=== PATIENT | female | born 1965 | race Caucasian/White ===

== ENCOUNTER 2018-07-09 06:16 | Inpatient (IN) | payer BC, OTHER ==
[2018-07-09] MEDS ORDERED: TRANEXAMIC ACID 1000 MG/10 ML VIAL IVPUSH ONE (06:37)
[2018-07-09] MEDS ORDERED: CEFAZOLIN 2 GM/D5W 2 GM/50 ML ML IVPB ONE (06:37)
[2018-07-09] MEDS ORDERED: GABAPENTIN 300 MG CAPSULE (FP) PO ONE (06:37)
[2018-07-09] MEDS ORDERED: CELECOXIB 200 MG CAPSULE PO ONE (06:37)
[2018-07-09] MEDS ORDERED: oxyCODONE HCL 10 MG SUSTAINED ACTING TABLET PO ONE (06:37)
[2018-07-09 06:44] VITALS: BMI 26.3
[2018-07-09] MEDS ORDERED: DEXAMETHASONE SOD PHOSPHATE/PF 10 MG/ML SDV ONE (07:42)
[2018-07-09] MEDS ORDERED: LIDOCAINE 1% P/F 10 MG/ML VIAL ONE (07:43)
[2018-07-09] MEDS ORDERED: MIDAZOLAM HCL 2 MG/2 ML SINGLE DOSE VIAL ONE (07:43)
[2018-07-09] MEDS ORDERED: ROPIVACAINE HCL 0.5% 30ML VIAL ONE (07:43)
[2018-07-09] MEDS ORDERED: PROPOFOL 20 ML ONE ×2 (07:46)
--- NOTE | 2018-07-09 07:59 | HP ---
Satellite PMH - Chief Complaint Chief Complaint: right hip pain - Past Medical History Allergies/Adverse Reactions: Allergies Allergy/AdvReac Type Severity Reaction Status Date / Time nitrofurantoin Allergy [id number] Verified 06/24/18 12:52 [From Macrodantin] DISEASE methylprednisolone AdvReac Severe AGGRESSION/ Verified 06/24/18 12:52 [From Medrol] AGITATION ...LMP Comment: OVER 30 YEARS AGO - Current Medications Current Medications: Home Medications Medication Instructions Recorded Estradiol/Norethindrone Acet 1 each TD ASDIR 06/24/18 [Combipatch 0.05-0.14 mg Ptch] Hydrocodone/Acetaminophen [Vicodin 1 each PO Q4HWA PRN 06/24/18 Es 7.5-300 mg Tablet] Cannabidiol (Cbd) Extract 100 mg PO ASDIR PRN 07/09/18 [Epidiolex] Ibuprofen [Advil -] 200 mg PO QID PRN 07/09/18 Multivitamins [Tab-A-Vit -] 1 tab PO DAILY 07/09/18 Satellite Physical Exam - Physical Examination Vital Signs: Vital Signs Period Temp Pulse Resp BP Sys/Andujar Pulse Ox Last 24 Hr 98.2 F 82 18 137/79 General Appearance: Well Nourished, Well Developed, Alert & Oriented x3 ENT: Clear Lung: Normal air movement Heart: Regular rate & rhythm Extremities: Other (right hip- + ttp, dec rom, nvi xrays show grade 4 hip djd) Neurological: Intact, Alert, Oriented Satellite Impression/Plan - Impression/Plan Impression: right hip djd Operative Procedure: right autumn thr Date to be Performed: 07/09/18
[2018-07-09] MEDS ORDERED: TRANEXAMIC ACID 1000 MG/10 ML VIAL ONE ×2 (08:00→09:25)
[2018-07-09] MEDS ORDERED: ceFAZolin SODIUM 1 GM VIAL ONE ×2 (08:00)
[2018-07-09] MEDS ORDERED: ePHEDrine SULFATE 50 MG/1 ML AMPULE ONE (09:16)
[2018-07-09] MEDS ORDERED: ONDANSETRON 4 MG/2 ML VIAL IVPUSH PRN (09:45)
[2018-07-09] MEDS ORDERED: MAGNESIUM HYDROX 2400MG/30ML ORAL SUSPENSION 30 ML CUP PO PRN (09:45)
[2018-07-09] MEDS ORDERED: MAG HYDROX/AL HYDROX/SIMETH 30 ML UNIT-DOSE CUP PO PRN (09:45)
[2018-07-09] MEDS ORDERED: LACTATED RINGERS SOLUTION 1,000 ML IV SCH (09:45)
--- NOTE | 2018-07-09 09:47 | OP ---
Operative Note - Note: Operative Date: 07/09/18 (alexa) Pre-Operative Diagnosis: right hip djd Operation: right autumn thr Post-Operative Diagnosis: Same as Pre-op Surgeon: Angel Sparks Audio/Video Engineer: Francis Gann ([facility]) Anesthesia: Spinal, Local Specimens Removed: femoral head Estimated Blood Loss (mls): 150 Operative Report Dictated: Yes
[2018-07-09] MEDS ORDERED: MULTIVITAMINS (DAILY MVI) TABLET (FP) PO SCH (10:00)
[2018-07-09] MEDS ORDERED: oxyCODONE HCL 5 MG TABLET PO PRN (10:47)
[2018-07-09] MEDS: MULTIVITAMINS (DAILY MVI) TABLET (FP) PO SCH (11:52)
[2018-07-09] MEDS: oxyCODONE HCL 5 MG TABLET PO PRN ×3 (11:52→21:04)
[2018-07-09] MEDS: PANTOPRAZOLE 40 MG TABLET (FP) PO SCH (11:53)
[2018-07-09] MEDS: SENNOSIDES/DOCUSATE COMBO (SENNA PLUS) TABLET (UD) PO SCH ×2 (11:53→21:05)
[2018-07-09] MEDS: ACETAMINOPHEN 325 MG TABLET (FP) PO SCH ×2 (11:54→18:50)
--- NOTE | 2018-07-09 15:57 | SPEC ---
DATE OF OPERATION: 07/09/2018 PREOPERATIVE DIAGNOSIS: Degenerative joint disease, right hip. POSTOPERATIVE DIAGNOSIS: Degenerative joint disease, right hip. PROCEDURE PERFORMED: Right total hip replacement with robotic-assisted navigation (MAKOplasty). SURGICAL ATTENDING: Cassandra Robledo MD [employer] INSTALLER: JAYCE Walker, and Tuan Bell MD ANESTHESIA: Regional and spinal. CLOSURE: A Adamant total hip system with a number-4 Accolade II femoral stem with a 132-degree neck, a MDM head with +3 neck, and a 48-Trident II press-fit acetabulum. Number 1 Vicryl for fascia, 0 and 2-0 subcutaneous, 3-0 V-Loc for skin, 4-0 undyed Vicryl for pin sites. ESTIMATED BLOOD LOSS: Less than 100 mL. COMPLICATIONS: None. CONDITION: To the recovery room in stable condition. DESCRIPTION OF PROCEDURE: The patient was taken to the operating room on July 09, 2018. General and regional anesthesia was administered by the anesthesiologist. IV Kefzol and TXA were administered prophylactically prior to the case. The patient was placed in the lateral decubitus position with all prominences well-padded. The right hip area was prepped and draped in the usual sterile fashion. Using 3 small stab incisions over the iliac crest, 3 threaded pins were drilled in power fashion through the 2 tables of the crest. These pins were fastened and the navigation array for the Jono navigation system. Next, a 12 to 15-cm curved longitudinal incision over the posterolateral aspect of the greater trochanter was incised. Hemostasis was achieved with Bovie cautery. Sharp dissection was carried down to level of the fascia. The fascia was opened the entire length of the incision, spreading the fibers of the gluteus sweetie in the direction of origin. A Charnley retractor was placed in this layer. Care was taken not to impale the sciatic nerve. The short external rotators were detached off the insertion of the greater trochanter and peeled off the capsule. A posterior capsulotomy was then performed. A check point was malleted into the greater trochanter and a point on the inferior pole of the patella was obtained as well. These 2 points were used to assess the preoperative offset and limb lengths of the hip. The hip was then dislocated. The femoral neck was then osteotomized down to the appropriate level as directed by the navigation device. Anterior and posterior retractors were placed, exposing the acetabulum. A circumferential labral excision was performed. A check point was malleted into the acetabulum as well. Multiple sites inside the acetabulum and around the rim were utilized to register the acetabulum with the navigation device. An excellent registration of less than 0.5 mm was obtained. The hip was then reamed with the appropriate reamer down to the appropriate depth, with the appropriate orientation and version as assessed on our preoperative plan for this patient. The reamer was removed and the acetabulum was inspected to have good bleeding surfaces throughout. The real acetabular cup was then malleted down into place, with the holes in the appropriate position, until an excellent fixation was obtained. No screws were necessary. The navigation device ensured appropriate orientation and version, with the depth as predetermined. The appropriate liner was then clipped into place. Attention was directed to the femur. The proximal femur was prepared by use of a box chisel, a canal finder and serial broaches until the broach achieved excellent rigidity in the proximal femur with the appropriate version being applied. A calcar planer was used to smooth off the calcar flush with the trial components. A trial reduction with the appropriate head was done, and the hip was reduced. The hip was taken through a range of motion from full extension with external rotation to marked flexion, and was stable at 90 degrees of flexion. It was stable to marked abduction and internal rotation, with a positive hang test and negative telescoping. Limb lengths were ascertained visually as well as with the navigation device to be within the targeted range for this patient. The trial component was removed. The real component was then malleted into place. The head was cold welded to the trunnion, and the hip was reduced. Range of motion, stability and limb lengths were as described in the trial component. Then the hip was pulse antibiotic irrigated. Vancomycin powder was placed in the hip joint. The capsule was closed. The fascia was then closed as well using number-1 Vicryl interrupted suture, 0 and 2-0 subcutaneous, and 3-0 V-Loc for the skin, 4-0 undyed Vicryl was used to close the pin sites after the pins were removed. All check points were also removed. Sterile Aquacel dressing was applied. The patient was awakened from anesthesia and transferred into the supine position. Bilateral SCDs and an abduction pillow were placed. X-rays revealed excellent position of the components. The patient was transferred to the recovery room in stable condition, with no complications. Estimated blood loss was less than 100 mL. Tuan Bell M.D., dictating for Cassandra Robledo MD. CASSANDRA ROBLEDO M.D. SHORTY/[id number]
[2018-07-09] MEDS: CEFAZOLIN 2 GM/D5W 2 GM/50 ML ML IVPB SCH (16:03)
[2018-07-09] MEDS: GABAPENTIN 300 MG CAPSULE (FP) PO SCH (21:04)
[2018-07-09] MEDS: oxyCODONE HCL 10 MG SUSTAINED ACTING TABLET PO SCH (21:04)
[2018-07-10] MEDS: CEFAZOLIN 2 GM/D5W 2 GM/50 ML ML IVPB SCH (00:55)
[2018-07-10] MEDS: oxyCODONE HCL 5 MG TABLET PO PRN ×3 (05:54→19:12)
[2018-07-10 07:54] LABS: HEMATOCRIT 34.1 % (32.4-45.2); HEMOGLOBIN 11.3 GM/dl (10.7-15.3); MCH 30.8 pg (25.7-33.7); MEAN CELL VOLUME 93.5 fl (80-96); PLATELET COUNT 283 K/MM3 (134-434); RBC 3.65 M/mm3 (3.60-5.2); RDW 13.7 % (11.6-15.6); WHITE BLOOD COUNT 10.5 K/mm3 (4.0-10.8)
--- NOTE | 2018-07-10 08:10 | PN ---
Progress Note (short form) - Note Progress Note: Ortho Pt seen and examined s/p right autumn thr pod #1 Laboratory Tests 07/10/18 07:42 WBC 10.5 Hgb 11.3 Hct 34.1 Plt Count 283 dressing c/d/i, calf soft, nt nvi a/p PT hip precautions dvt ppx pain control d/c home today/tomorrow
[2018-07-10] MEDS: ACETAMINOPHEN 325 MG TABLET (FP) PO SCH ×4 (09:03→19:12)
[2018-07-10] MEDS: PANTOPRAZOLE 40 MG TABLET (FP) PO SCH (09:04)
[2018-07-10] MEDS: ASPIRIN 325 MG TABLET PO SCH (09:04)
[2018-07-10] MEDS: GABAPENTIN 300 MG CAPSULE (FP) PO SCH ×2 (09:04→21:07)
[2018-07-10] MEDS: SENNOSIDES/DOCUSATE COMBO (SENNA PLUS) TABLET (UD) PO SCH ×2 (09:05→21:07)
[2018-07-10] MEDS: MULTIVITAMINS (DAILY MVI) TABLET (FP) PO SCH (09:05)
[2018-07-10] MEDS: oxyCODONE HCL 10 MG SUSTAINED ACTING TABLET PO SCH ×2 (09:05→21:08)
--- NOTE | 2018-07-10 13:21 | PN ---
Progress Note (short form) - Note Progress Note: 53F POD1 s/p R THR under spinal anesthetic under spinal anesthetic with peripheral nerve blocks for post operative pain relief. Pt states that pain is well controlled and reports no anesthetic complications. AVSS. Motor and sensory function intact in bilateral lower extremities. Continue current regimen.
[2018-07-11] MEDS: ACETAMINOPHEN 325 MG TABLET (FP) PO SCH ×2 (00:50→03:35)
[2018-07-11 06:04] VITALS: BP 141/58; PULSE 77; TEMP 98.7
[2018-07-11] MEDS: ASPIRIN 325 MG TABLET PO SCH (08:10)
[2018-07-11 08:43] LABS: HEMATOCRIT 33.6 % (32.4-45.2); HEMOGLOBIN 10.8 GM/dl (10.7-15.3); MCH 30.1 pg (25.7-33.7); MEAN PLT VOLUME 8.6 fl (7.5-11.1); PLATELET COUNT 276 K/MM3 (134-434); RBC 3.57 M/mm3 (3.60-5.2); RDW 13.7 % (11.6-15.6); WHITE BLOOD COUNT 10.1 K/mm3 (4.0-10.8)
[2018-07-11] MEDS: oxyCODONE HCL 10 MG SUSTAINED ACTING TABLET PO SCH (10:06)
[2018-07-11] MEDS: GABAPENTIN 300 MG CAPSULE (FP) PO SCH (10:06)
--- NOTE | 2018-07-11 10:15 | PN ---
Progress Note (short form) - Note Progress Note: Ortho Pt seen and examined s/p right autumn thr pod #2 Selected Entries 07/11/18 06:02 Temperature 98.7 F Pulse Rate 77 Respiratory 17 Rate Blood Pressure 141/58 L Laboratory Tests 07/11/18 08:10 WBC 10.1 Hgb 10.8 Hct 33.6 Plt Count 276 dressing c/d/i, calf soft, nt nvi a/p PT hip precautions dvt ppx pain control d/c home today f/u in 1 week
--- NOTE | 2018-07-11 10:15 | DS ---
Physical Examination Vital Signs: Vital Signs Temperature 98.7 F 07/11/18 06:02 Pulse Rate 77 07/11/18 06:02 Respiratory Rate 17 07/11/18 08:01 Blood Pressure 141/58 L 07/11/18 06:02 O2 Sat by Pulse Oximetry (%) 98 07/11/18 08:01 Labs: CBC, BMP 07/11/18 08:10 Discharge Summary Reason For Visit: OSTEOARTHRITIS Procedures: Principal: right thr Hospital Course: admitted for elective right autumn thr, uneventful post-op, stable for d/c Condition: Good - Instructions Diet, Activity, Other Instructions: Post-op Instructions-Total Hip Replacement Call the office for a follow-up appointment in 1 week - [phone] Aspirin 325mg daily for 6 weeks. Pain medication was sent into your pharmacy. Apply Graduated Compression Stockings (TEDs) to both lower extremities- remove daily for hygiene ONLY Apply Sequential Compression Device (SCDs) to both Lower extremities remove for PT and hygiene ONLY Apply cold packs to affected area for 15 minutes every 2 hours. Physical Therapist will come to your home for the first 5 days. You will be set up with outpatient PT at your first post-operative visit. Patient may ambulate as tolerated-encourage self care (at least every 2-3 hours while awake) with walker or cane Maintain Aquacel (waterproof) dressing to operative wound (will be removed by surgeon at first office visit) Shower with Aquacel dressing in place-if Aquacel integrity compromised, remove and apply dry sterile dressing and notify Orthopedist. DO NOT SHOWER unless Orthopedists approves without Aquacel dressing CONTACT THE OFFICE FOR ANY CHANGE IN YOUR CONDITION (for example-fever greater than 102 degrees, excessive bleeding from operative site, purulent drainage, severe swelling or pain) GO TO THE EMERGENCY ROOM IF THERE IS A MEDICAL EMERGENCY Hip Precautions: * Keep a rolled towel under affected heel while in bed or chair (to keep knee in extension) * Dependent upon approach: * Posterior - do not cross legs; do not sit on low chairs or toilets. * If you have any questions, please do not hesitate to call the office - . Referrals: Tuan Bell MD [Family Provider] - Disposition: VNS/HOME HEALTH CARE - Home Medications Comprehensive Discharge Medication List: Ambulatory Orders Estradiol/Norethindrone Acet [Combipatch 0.05-0.14 mg Ptch] 1 each TD ASDIR Aspirin [ASA -] 325 mg PO DAILY@0800 tablet 07/09/18 Cannabidiol (Cbd) Extract [Epidiolex] 100 mg PO ASDIR PRN 07/09/18 Hydrocodone/Acetaminophen [Vicodin Es 7.5-300 mg Tablet] 1 each PO Q4HWA #40 tablet MDD 6 07/09/18 Ibuprofen [Advil -] 200 mg PO QID PRN 07/09/18 Multivitamins [Multivit ([facility] Formulary)] 1 tab PO DAILY 07/09/18
--- NOTE | 2018-07-15 11:17 | PATH ---
Surgical Pathology Report Patient Name: DAVID OTTO Med. Rec. #: [id number] /Age/Gender: 1965 (Age: 53) / F Account: [id number] Location: [facility] Taken: 07/09/2018 Received: 07/09/2018 Reported: 07/15/2018 Physicians: Angel Sparks M.D. Specimen(s) Received RIGHT FEMORAL HEAD Clinical History Right hip osteoarthritis Final Diagnosis FEMORAL HEAD, RIGHT, TOTAL HIP REPLACEMENT: DEGENERATIVE JOINT DISEASE. Electronically Signed Maritza Black M.D. Gross Description Received in formalin, labeled "right femoral head," is a 4.5 x 4.5 x 3.6 cm. femoral head with a 1 cm in length portion of femoral neck attached. The margin of resection is smooth. No areas of eburnation are identified. The articular surface is jean baptiste-yellow and focally granular. The underlying trabecular bone is yellow and hard. A accounting representative section is submitted in one cassette, following decalcification. 07/10/2018 [facility]07/10/2018
== END 2018-07-11 11:03 | disposition home health service (06) | DRG 470 ==
LOC: FM/S 06:16
PROVIDERS: ADMIT Orthopaedic Surgery; ATTEND Orthopaedic Surgery
PROC: 8E0Y0CZ Robotic Assisted Procedure of Lower Extremity, Open Approach (ICD-10-PCS; 2018-07-09)
PROC: 0SR90JZ Replacement of Right Hip Joint with Synthetic Substitute, Open Approach (ICD-10-PCS; principal; 2018-07-09 08:42)
DX: M16.11 Unilateral primary osteoarthritis, right hip (principal)
CPT/HCPCS: 36415; 73502-TC-RT; 85027; 88304-TC; 88311-TC; 94760; 97116-GP; 97162-GP

== ENCOUNTER 2021-05-26 20:19 | Inpatient (IN) | payer BC ==
[2021-05-26 13:43] VITALS: BMI 29.1
[2021-05-31] MEDS ORDERED: LIDOCAINE 1%/EPI 1:100000 (20 ML MULTI DOSE VIAL) ONE (07:16)
[2021-05-31] MEDS ORDERED: BUPIVACAINE LIPOSOME/PF (EXPAREL) 266 MG/20 ML VIAL ONE (07:16)
[2021-05-31] MEDS ORDERED: PROPOFOL 20 ML ONE (08:06)
[2021-05-31] MEDS ORDERED: MIDAZOLAM HCL 2 MG/2 ML SINGLE DOSE VIAL ONE (08:06)
[2021-05-31] MEDS ORDERED: ROCURONIUM BROMIDE 50 MG/5 ML SYRINGE ONE (08:06)
[2021-05-31] MEDS ORDERED: SUCCINYLCHOLINE CHLORIDE 200 MG/10 ML SYRINGE ONE (08:06)
[2021-05-31] MEDS ORDERED: ceFAZolin SODIUM 1 GM VIAL ONE ×2 (08:42→17:14)
[2021-05-31] MEDS ORDERED: ceFAZolin SODIUM 1 GM VIAL IVPB ONE (08:46)
[2021-05-31] MEDS ORDERED: VANCOMYCIN 1,000 MG VIAL (RESTRICTED TO ID ONLY) ONE (08:51)
[2021-05-31] MEDS ORDERED: ePHEDrine SULFATE 50 MG/1 ML AMPULE ONE (08:57)
[2021-05-31] MEDS ORDERED: DEXAMETHASONE SOD PHOSPHATE 4 MG/1 ML VIAL ONE (08:59)
[2021-05-31] MEDS ORDERED: VANCOMYCIN 1 GM in D5W (PRE-DOCKED) 1,000 MG/250 ML IVPB ONE (09:00)
[2021-05-31] MEDS ORDERED: TRANEXAMIC ACID 1000 MG/10 ML VIAL ONE (09:02)
[2021-05-31] MEDS ORDERED: LIDOCAINE 1%/EPI 1:100000 (20 ML MULTI DOSE VIAL) IJ ONE (09:11)
[2021-05-31] MEDS ORDERED: GENTAMICIN SO4 80 MG/2 ML VIAL IVPB ONE (09:15)
[2021-05-31] MEDS ORDERED: HYDROmorphone HCl 2 MG/ML VIAL ONE (09:16)
[2021-05-31] MEDS ORDERED: THROMBIN (BOVINE) 5,000 UNIT VIAL TP ONE (09:30)
[2021-05-31] MEDS ORDERED: NEOSTIGMINE METHYLSULFATE 0.5 MG/1 ML - 10 ML MDV ONE (10:03)
[2021-05-31] MEDS ORDERED: ONDANSETRON 4 MG/2 ML VIAL ONE (10:06)
[2021-05-31] MEDS ORDERED: ONDANSETRON 4 MG/2 ML VIAL IVPUSH PRN ×2 (10:33→11:31)
[2021-05-31] MEDS ORDERED: LACTATED RINGERS SOLUTION 1,000 ML IV SCH (10:45)
[2021-05-31] MEDS ORDERED: diphenhydrAMINE HCL 25 MG CAPSULE (FP) PO PRN (11:31)
[2021-05-31] MEDS ORDERED: oxyCODONE HCL 5 MG TABLET PO PRN (11:31)
[2021-05-31] MEDS ORDERED: LACTATED RINGERS SOLUTION 1,000 ML/1,000 ML INFUS.BAG IV SCH (11:45)
[2021-05-31] MEDS: HEPARIN NA (PORCINE) 5,000 UNITS/ML 1ML VIAL SQ SCH ×2 (16:03→21:16)
[2021-05-31] MEDS: DOCUSATE SODIUM 100 MG CAPSULE (FP) PO SCH ×2 (16:12→21:16)
[2021-05-31] MEDS ORDERED: DEXTROSE 5%-WATER - 50 ML IVPB ONE (17:15)
[2021-05-31] MEDS: morphine SULFATE 4 MG/ML VIAL IVPUSH PRN ×2 (17:22→22:39)
[2021-05-31] MEDS: CEFAZOLIN 1 GM in DEXTROSE 5%-WATER - 1 GM/50 ML IVPB IVPB SCH (17:22)
[2021-06-01] MEDS ORDERED: ceFAZolin SODIUM 1 GM VIAL ONE ×3 (02:01→17:27)
[2021-06-01] MEDS ORDERED: DEXTROSE 5%-WATER - 50 ML IVPB ONE ×3 (02:01→17:27)
[2021-06-01] MEDS: CEFAZOLIN 1 GM in DEXTROSE 5%-WATER - 1 GM/50 ML IVPB IVPB SCH ×3 (02:14→17:32)
[2021-06-01] MEDS: morphine SULFATE 4 MG/ML VIAL IVPUSH PRN (02:16)
[2021-06-01] MEDS: HEPARIN NA (PORCINE) 5,000 UNITS/ML 1ML VIAL SQ SCH ×3 (05:34→22:17)
[2021-06-01] MEDS: DOCUSATE SODIUM 100 MG CAPSULE (FP) PO SCH ×3 (05:34→22:17)
[2021-06-01] MEDS: oxyCODONE HCL 5 MG TABLET PO PRN ×4 (09:00→22:22)
[2021-06-01 09:05] LABS: HEMATOCRIT 34.3 % (32.4-45.2); HEMOGLOBIN 11.7 GM/dL (10.7-15.3); MCH 31.1 pg (25.7-33.7); MEAN CELL VOLUME 91.4 fl (80-96); MEAN PLT VOLUME 8.4 fl (7.5-11.1); PLATELET COUNT 313 10^3/uL (134-434); RBC 3.76 M/mm3 (3.60-5.2); RDW 14.4 % (11.6-15.6); WHITE BLOOD COUNT 12.2 K/mm3 (4.0-10.0)
[2021-06-01 09:35] LABS: CALCIUM 8.6 mg/dL (8.5-10.1)
[2021-06-01 09:36] LABS: BLOOD UREA NITROGEN 8.1 mg/dL (7-18)
[2021-06-01 09:39] LABS: CREATININE 0.5 mg/dL (0.55-1.3)
[2021-06-01] MEDS: FOLIC ACID 1 MG TABLET (FP) PO SCH (10:59)
[2021-06-01] MEDS: FERROUS SO4 325 MG TABLET (FP) PO SCH (10:59)
[2021-06-02] MEDS ORDERED: ceFAZolin SODIUM 1 GM VIAL ONE (02:09)
[2021-06-02] MEDS ORDERED: DEXTROSE 5%-WATER - 50 ML IVPB ONE (02:10)
[2021-06-02] MEDS: morphine SULFATE 4 MG/ML VIAL IVPUSH PRN (02:27)
[2021-06-02] MEDS: CEFAZOLIN 1 GM in DEXTROSE 5%-WATER - 1 GM/50 ML IVPB IVPB SCH (02:30)
[2021-06-02] MEDS: oxyCODONE HCL 5 MG TABLET PO PRN ×3 (06:44→14:56)
[2021-06-02] MEDS: DOCUSATE SODIUM 100 MG CAPSULE (FP) PO SCH ×2 (06:47→14:56)
[2021-06-02] MEDS: HEPARIN NA (PORCINE) 5,000 UNITS/ML 1ML VIAL SQ SCH ×2 (06:48→14:56)
[2021-06-02 09:00] LABS: BASO % 0.2 % (0-2.0); EOS % 0.4 % (0-4.5); HEMOGLOBIN 11.7 GM/dL (10.7-15.3); LYMPH % 30.4 % (8-40); MCH 31.5 pg (25.7-33.7); MCHC 34.6 g/dl (32.0-36.0); MEAN CELL VOLUME 91.1 fl (80-96); MEAN PLT VOLUME 8.5 fl (7.5-11.1); MONO % 6.3 % (3.8-10.2); NEUT % 62.7 % (42.8-82.8); PLATELET COUNT 296 10^3/uL (134-434); RBC 3.73 M/mm3 (3.60-5.2); RDW 14.4 % (11.6-15.6); WHITE BLOOD COUNT 9.5 K/mm3 (4.0-10.0)
[2021-06-02 09:27] LABS: BLOOD UREA NITROGEN 6.7 mg/dL (7-18); CALCIUM 8.4 mg/dL (8.5-10.1)
[2021-06-02 09:28] LABS: ALBUMIN 3.1 g/dl (3.4-5.0); MAGNESIUM 1.6 mg/dL (1.8-2.4)
[2021-06-02 09:31] LABS: CREATININE 0.5 mg/dL (0.55-1.3); PHOSPHOROUS 2.6 mg/dL (2.5-4.9)
[2021-06-02 09:32] LABS: BILIRUBIN,TOTAL 0.5 mg/dL (0.2-1)
[2021-06-02 11:12] VITALS: TEMP 97.7
[2021-06-02] MEDS: FOLIC ACID 1 MG TABLET (FP) PO SCH (11:15)
[2021-06-02] MEDS: FERROUS SO4 325 MG TABLET (FP) PO SCH (11:15)
[2021-06-02 15:10] VITALS: BP 134/73; PULSE 75
== END 2021-06-02 16:13 | disposition home or self-care (01) | DRG 473 ==
LOC: EDSTATUS 05-30 09:50 → J2C 05-31 04:12 → J8W 05-31 14:42
PROVIDERS: ADMIT Neurological Surgery; ATTEND Internal Medicine
PROC: 0RT30ZZ Resection of Cervical Vertebral Disc, Open Approach (ICD-10-PCS; 2021-05-31)
PROC: 00NW0ZZ Release Cervical Spinal Cord, Open Approach (ICD-10-PCS; 2021-05-31)
PROC: 4A11X4G Monitoring of Peripheral Nervous Electrical Activity, Intraoperative, External Approach (ICD-10-PCS; 2021-05-31)
PROC: 0RG20A0 Fusion of 2 or more Cervical Vertebral Joints with Interbody Fusion Device, Anterior Approach, Anterior Column, Open Approach (ICD-10-PCS; principal; 2021-05-31 08:00)
DX: M47.12 Other spondylosis with myelopathy, cervical region (principal); G60.0 Hereditary motor and sensory neuropathy; G47.33 Obstructive sleep apnea (adult) (pediatric); Z96.641 Presence of right artificial hip joint; E66.3 Overweight; Z68.29 Body mass index [BMI] 29.0-29.9, adult; D72.829 Elevated white blood cell count, unspecified
CPT/HCPCS: 36415; 72125-TC; 76000-TC-FY; 80048; 80053; 81025; 83735; 84100; 85025; 85027; 86850; 86900; 86901; 94010; 94660; 94760; 97116-GP; 97161-GP; J1644

== ENCOUNTER 2021-06-14 08:00 | Inpatient (IN) | payer BC ==
[2021-06-10 11:37] VITALS: BMI 28.0
[2021-06-14] MEDS ORDERED: ONDANSETRON 4 MG/2 ML VIAL IVPUSH PRN (10:16)
[2021-06-14] MEDS ORDERED: LACTATED RINGERS SOLUTION 1,000 ML IV SCH (10:30)
[2021-06-14] MEDS ORDERED: LIDOCAINE 1%/EPI 1:100000 (20 ML MULTI DOSE VIAL) ONE (11:32)
[2021-06-14] MEDS ORDERED: GENTAMICIN SO4 80 MG/2 ML VIAL ONE (11:32)
[2021-06-14] MEDS ORDERED: BUPIVACAINE LIPOSOME/PF (EXPAREL) 266 MG/20 ML VIAL ONE (11:33)
[2021-06-14] MEDS ORDERED: BUPIVACAINE HCL/PF 0.5% (5MG/ML) 10 ML VIAL ONE (11:33)
[2021-06-14] MEDS ORDERED: MIDAZOLAM HCL 2 MG/2 ML SINGLE DOSE VIAL ONE ×3 (14:19→15:08)
[2021-06-14] MEDS ORDERED: LIDOCAINE 1%/EPI 1:100000 (20 ML MULTI DOSE VIAL) IJ ONE ×2 (14:21→15:35)
[2021-06-14] MEDS ORDERED: fentaNYL CITRATE 250 MCG/5 ML VIAL ONE (14:22)
[2021-06-14] MEDS ORDERED: ceFAZolin 2 GRAM PREMIX BAG IVPB ONE ×2 (14:22→15:15)
[2021-06-14] MEDS ORDERED: VANCOMYCIN 1 GM in D5W (PRE-DOCKED) 1,000 MG/250 ML IVPB ONE ×3 (14:22→16:01)
[2021-06-14] MEDS ORDERED: PROPOFOL 20 ML ONE (14:23)
[2021-06-14] MEDS ORDERED: HYDROGEN PEROXIDE 473 ML PO ONE ×2 (14:23→15:53)
[2021-06-14] MEDS ORDERED: THROMBIN (BOVINE) 5,000 UNIT VIAL TP ONE ×2 (14:23→15:52)
[2021-06-14] MEDS ORDERED: GENTAMICIN SO4 80 MG/2 ML VIAL IVPB ONE ×2 (14:24→15:53)
[2021-06-14] MEDS ORDERED: BUPIVACAINE LIPOSOME/PF (EXPAREL) 266 MG/20 ML VIAL NR ONE (14:25)
[2021-06-14] MEDS ORDERED: BUPIVACAINE HCL/PF 0.5% (5MG/ML) 10 ML VIAL IJ ONE (14:25)
[2021-06-14] MEDS ORDERED: MORPHINE 5 MG/10 ML AMP - FOR COMPOUNDING USE ONLY ONE (14:26)
[2021-06-14] MEDS ORDERED: DESFLURANE GAS 240 ML BOTTLE IH ONE (17:06)
[2021-06-14] MEDS ORDERED: NEOSTIGMINE METHYLSULFATE 0.5 MG/1 ML - 10 ML MDV ONE (17:07)
[2021-06-14] MEDS ORDERED: TRANEXAMIC ACID 1000 MG/10 ML VIAL ONE ×2 (18:23→18:24)
[2021-06-14] MEDS ORDERED: ACETAMINOPHEN INJECTION 100 ML IVPB ONE (18:26)
[2021-06-14] MEDS ORDERED: oxyCODONE HCL 5 MG TABLET PO PRN ×2 (20:04)
[2021-06-14] MEDS ORDERED: diphenhydrAMINE HCL 25 MG CAPSULE (FP) PO PRN (20:04)
[2021-06-14] MEDS: LACTATED RINGERS SOLUTION 1,000 ML/1,000 ML INFUS.BAG IV SCH (23:49)
[2021-06-14] MEDS: DOCUSATE SODIUM 100 MG CAPSULE (FP) PO SCH (23:50)
[2021-06-15] MEDS: HEPARIN NA (PORCINE) 5,000 UNITS/ML 1ML VIAL SQ SCH ×4 (00:03→21:39)
[2021-06-15] MEDS ORDERED: ceFAZolin SODIUM 1 GM VIAL ONE ×3 (02:07→15:44)
[2021-06-15] MEDS ORDERED: DEXTROSE 5%-WATER - 50 ML IVPB ONE ×3 (02:08→15:45)
[2021-06-15] MEDS: CEFAZOLIN 1 GM in DEXTROSE 5%-WATER - 50 ML IVPB SCH ×3 (02:13→17:42)
[2021-06-15] MEDS: morphine SULFATE 4 MG/ML VIAL IVPUSH PRN ×3 (02:22→10:41)
[2021-06-15] MEDS: LACTATED RINGERS SOLUTION 1,000 ML/1,000 ML INFUS.BAG IV SCH (06:11)
[2021-06-15] MEDS: DOCUSATE SODIUM 100 MG CAPSULE (FP) PO SCH ×3 (06:15→21:39)
[2021-06-15 07:16] LABS: HEMATOCRIT 25.2 % (32.4-45.2); HEMOGLOBIN 8.6 GM/dL (10.7-15.3); MCH 31.5 pg (25.7-33.7); MCHC 33.9 g/dl (32.0-36.0); MEAN CELL VOLUME 92.8 fl (80-96); MEAN PLT VOLUME 8.2 fl (7.5-11.1); PLATELET COUNT 232 10^3/uL (134-434); RBC 2.72 M/mm3 (3.60-5.2); RDW 14.3 % (11.6-15.6); WHITE BLOOD COUNT 10.4 K/mm3 (4.0-10.0)
[2021-06-15 07:52] LABS: BLOOD UREA NITROGEN 7.2 mg/dL (7-18); MAGNESIUM 1.9 mg/dL (1.8-2.4)
[2021-06-15 07:56] LABS: CREATININE 0.4 mg/dL (0.55-1.3); PHOSPHOROUS 3.7 mg/dL (2.5-4.9)
[2021-06-15] MEDS: FOLIC ACID 1 MG TABLET (FP) PO SCH (09:16)
[2021-06-15] MEDS: FERROUS SO4 325 MG TABLET (FP) PO SCH (09:16)
[2021-06-15] MEDS ORDERED: ACETAMINOPHEN 1000 MG/100 ML VIAL IVPB ONE (11:57)
[2021-06-15] MEDS ORDERED: HYDROmorphone HCl 2 MG/ML VIAL IVPUSH PRN (12:13)
[2021-06-15] MEDS ORDERED: ACETAMINOPHEN 1000 MG/100 ML VIAL IVPB SCH (14:45)
[2021-06-15] MEDS: HYDROmorphone HCL 2 MG TABLET PO PRN ×2 (16:29→22:36)
[2021-06-15] MEDS: HYDROmorphone HCl 2 MG/ML VIAL IVPB PRN ×2 (17:14→21:34)
[2021-06-15] MEDS: ACETAMINOPHEN 1000 MG/100 ML VIAL IVPB SCH (18:29)
[2021-06-16] MEDS ORDERED: ceFAZolin SODIUM 1 GM VIAL ONE ×3 (01:26→17:00)
[2021-06-16] MEDS ORDERED: DEXTROSE 5%-WATER - 50 ML IVPB ONE ×3 (01:27→17:00)
[2021-06-16] MEDS: ACETAMINOPHEN 1000 MG/100 ML VIAL IVPB SCH ×2 (01:44→06:09)
[2021-06-16] MEDS: CEFAZOLIN 1 GM in DEXTROSE 5%-WATER - 50 ML IVPB SCH ×3 (01:54→18:09)
[2021-06-16] MEDS: HYDROmorphone HCl 2 MG/ML VIAL IVPB PRN ×4 (02:29→18:33)
[2021-06-16] MEDS: HYDROmorphone HCL 2 MG TABLET PO PRN ×4 (04:51→21:08)
[2021-06-16] MEDS: DOCUSATE SODIUM 100 MG CAPSULE (FP) PO SCH ×3 (06:09→21:07)
[2021-06-16] MEDS: HEPARIN NA (PORCINE) 5,000 UNITS/ML 1ML VIAL SQ SCH ×3 (06:09→21:07)
[2021-06-16] MEDS ORDERED: ACETAMINOPHEN 325 MG TABLET (FP) PO PRN (07:14)
[2021-06-16] MEDS ORDERED: HYDROmorphone HCl 2 MG/ML VIAL IVPUSH PRN ×2 (08:04→08:09)
[2021-06-16] MEDS ORDERED: HYDROmorphone HCL 2 MG TABLET PO PRN (08:05)
[2021-06-16] MEDS: MULTIVITAMINS (DAILY MVI) TABLET (FP) PO SCH (09:21)
[2021-06-16] MEDS: FERROUS SO4 325 MG TABLET (FP) PO SCH (09:21)
[2021-06-16] MEDS: FOLIC ACID 1 MG TABLET (FP) PO SCH (09:21)
[2021-06-16] MEDS: LIDOCAINE 5% TOPICAL PATCH TP SCH (11:06)
[2021-06-16 12:38] LABS: BASO % 0.6 % (0-2.0); HEMATOCRIT 25.3 % (32.4-45.2); HEMOGLOBIN 8.5 GM/dL (10.7-15.3); MCH 30.7 pg (25.7-33.7); MCHC 33.7 g/dl (32.0-36.0); MEAN PLT VOLUME 8.3 fl (7.5-11.1); MONO % 4.7 % (3.8-10.2); NEUT % 79.7 % (42.8-82.8); PLATELET COUNT 259 10^3/uL (134-434); RBC 2.78 M/mm3 (3.60-5.2); RDW 13.9 % (11.6-15.6); WHITE BLOOD COUNT 12.3 K/mm3 (4.0-10.0)
[2021-06-16 12:58] LABS: CALCIUM 8.3 mg/dL (8.5-10.1)
[2021-06-16 12:59] LABS: BLOOD UREA NITROGEN 5.5 mg/dL (7-18)
[2021-06-16 13:02] LABS: CREATININE 0.5 mg/dL (0.55-1.3)
[2021-06-16 13:03] LABS: BILIRUBIN,TOTAL 0.4 mg/dL (0.2-1); TOT PROT 5.6 g/dl (6.4-8.2)
[2021-06-16] MEDS ORDERED: POTASSIUM CHLORIDE ORAL LIQUID 20 MEQ/15 ML PO ONE (13:45)
[2021-06-16] MEDS: ONDANSETRON 4 MG/2 ML VIAL IVPUSH PRN (15:07)
[2021-06-16] MEDS ORDERED: LIDOCAINE PATCH REMOVAL MC SCH (22:00)
[2021-06-17] MEDS: HYDROmorphone HCl 2 MG/ML VIAL IVPB PRN (00:21)
[2021-06-17] MEDS: ONDANSETRON 4 MG/2 ML VIAL IVPUSH PRN ×2 (00:21→08:51)
[2021-06-17] MEDS ORDERED: ceFAZolin SODIUM 1 GM VIAL ONE ×2 (03:46→07:52)
[2021-06-17] MEDS ORDERED: DEXTROSE 5%-WATER - 50 ML IVPB ONE ×2 (03:46→07:53)
[2021-06-17] MEDS: CEFAZOLIN 1 GM in DEXTROSE 5%-WATER - 50 ML IVPB SCH (03:51)
[2021-06-17] MEDS: DOCUSATE SODIUM 100 MG CAPSULE (FP) PO SCH ×2 (06:07→13:48)
[2021-06-17] MEDS: HEPARIN NA (PORCINE) 5,000 UNITS/ML 1ML VIAL SQ SCH ×2 (06:07→13:48)
[2021-06-17 07:41] LABS: BASO % 0.3 % (0-2.0); EOS % 1.3 % (0-4.5); HEMATOCRIT 25.8 % (32.4-45.2); HEMOGLOBIN 8.7 GM/dL (10.7-15.3); LYMPH % 16.8 % (8-40); MCH 30.5 pg (25.7-33.7); MCHC 33.7 g/dl (32.0-36.0); MEAN CELL VOLUME 90.3 fl (80-96); MEAN PLT VOLUME 7.9 fl (7.5-11.1); NEUT % 76.6 % (42.8-82.8); PLATELET COUNT 270 10^3/uL (134-434); RBC 2.86 M/mm3 (3.60-5.2); RDW 13.9 % (11.6-15.6); WHITE BLOOD COUNT 12.6 K/mm3 (4.0-10.0)
[2021-06-17 07:48] LABS: CHLORIDE 103 mmol/L (98-107); SODIUM 137 mmol/L (136-145)
[2021-06-17 07:59] LABS: ALBUMIN 2.9 g/dl (3.4-5.0); ANION GAP 3 MMOL/L (8-16); CALCIUM 8.6 mg/dL (8.5-10.1); CO2 32 mmol/L (21-32); GLUCOSE,RANDOM 97 mg/dL (74-106)
[2021-06-17 08:02] LABS: CREATININE 0.4 mg/dL (0.55-1.3); SGOT/AST 49 U/L (15-37); SGPT/ALT 20 U/L (13-61)
[2021-06-17 08:03] LABS: BILIRUBIN,TOTAL 0.5 mg/dL (0.2-1)
[2021-06-17 08:04] LABS: ALK PHOS 51 U/L (45-117); TOT PROT 5.8 g/dl (6.4-8.2)
[2021-06-17] MEDS: oxyCODONE HCL 5 MG TABLET PO PRN ×2 (08:07→15:18)
[2021-06-17 08:33] LABS: BLOOD UREA NITROGEN 2.9 mg/dL (7-18)
[2021-06-17] MEDS ORDERED: ACETAMINOPHEN 1000 MG/100 ML VIAL IVPB ONE (09:15)
[2021-06-17] MEDS ORDERED: oxyCODONE HCL 20 MG SUSTAINED ACTING TABLET PO SCH (10:00)
[2021-06-17] MEDS: LIDOCAINE 5% TOPICAL PATCH TP SCH ×2 (10:04→10:09)
[2021-06-17] MEDS: FOLIC ACID 1 MG TABLET (FP) PO SCH (10:04)
[2021-06-17] MEDS: FERROUS SO4 325 MG TABLET (FP) PO SCH (10:04)
[2021-06-17] MEDS: MULTIVITAMINS (DAILY MVI) TABLET (FP) PO SCH (10:05)
[2021-06-17 14:24] VITALS: BP 108/60; PULSE 83; TEMP 97.8
== END 2021-06-17 18:40 | disposition home or self-care (01) | DRG 454 ==
LOC: J2C 08:42 → J4W 21:55
PROVIDERS: ADMIT Neurological Surgery; ATTEND Neurological Surgery
PROC: 0SG1071 Fusion of 2 or more Lumbar Vertebral Joints with Autologous Tissue Substitute, Posterior Approach, Posterior Column, Open Approach (ICD-10-PCS; 2021-06-14)
PROC: 0SB20ZZ Excision of Lumbar Vertebral Disc, Open Approach (ICD-10-PCS; 2021-06-14)
PROC: 01NB0ZZ Release Lumbar Nerve, Open Approach (ICD-10-PCS; 2021-06-14)
PROC: 0SG3071 Fusion of Lumbosacral Joint with Autologous Tissue Substitute, Posterior Approach, Posterior Column, Open Approach (ICD-10-PCS; 2021-06-14)
PROC: 00UT0KZ Supplement Spinal Meninges with Nonautologous Tissue Substitute, Open Approach (ICD-10-PCS; 2021-06-14)
PROC: 4A11X4G Monitoring of Peripheral Nervous Electrical Activity, Intraoperative, External Approach (ICD-10-PCS; 2021-06-14)
PROC: 0SG10AJ Fusion of 2 or more Lumbar Vertebral Joints with Interbody Fusion Device, Posterior Approach, Anterior Column, Open Approach (ICD-10-PCS; principal; 2021-06-14 08:00)
DX: M48.061 Spinal stenosis, lumbar region without neurogenic claudication (principal); G97.41 Accidental puncture or laceration of dura during a procedure; M43.16 Spondylolisthesis, lumbar region; M48.07 Spinal stenosis, lumbosacral region; M43.17 Spondylolisthesis, lumbosacral region; M53.2X6 Spinal instabilities, lumbar region; M41.86 Other forms of scoliosis, lumbar region; M47.816 Spondylosis without myelopathy or radiculopathy, lumbar region; G62.9 Polyneuropathy, unspecified; G60.0 Hereditary motor and sensory neuropathy; M51.36 Other intervertebral disc degeneration, lumbar region; G47.33 Obstructive sleep apnea (adult) (pediatric); Z96.641 Presence of right artificial hip joint; Y65.8 Other specified misadventures during surgical and medical care
CPT/HCPCS: 36415; 72131-TC; 76000-TC-FY; 80048; 80053; 83735; 84100; 84484; 85025; 85027; 86850; 86900; 86901; 93005; 93010; 93306-TC; 94010; 94660; 94760; 97116-GP; 97161-GP; J0131; J1644

== ENCOUNTER 2021-07-15 05:20 | Day surgery (SDC) | payer BC ==
[2021-07-15] MEDS ORDERED: VANCOMYCIN 1,000 MG VIAL (RESTRICTED TO ID ONLY) ONE ×2 (11:37→13:29)
[2021-07-15] MEDS ORDERED: LIDOCAINE 1%/EPI 1:100000 (20 ML MULTI DOSE VIAL) ONE (11:37)
[2021-07-15] MEDS ORDERED: THROMBIN (BOVINE) 20,000 UNIT VIAL TP ONE (11:37)
[2021-07-15] MEDS ORDERED: GENTAMICIN SO4 80 MG/2 ML VIAL ONE (11:37)
[2021-07-15] MEDS ORDERED: BUPIVACAINE HCL/PF 0.5% (5MG/ML) 10 ML VIAL ONE ×2 (13:03→13:11)
[2021-07-15] MEDS ORDERED: LIDOCAINE 1%/EPI 1:100000 (20 ML MULTI DOSE VIAL) IJ ONE ×2 (13:06→13:34)
[2021-07-15] MEDS ORDERED: ceFAZolin 2 GRAM PREMIX BAG IVPB ONE ×2 (13:07→13:20)
[2021-07-15] MEDS ORDERED: THROMBIN (BOVINE) 5,000 UNIT VIAL TP ONE ×2 (13:08→13:55)
[2021-07-15] MEDS ORDERED: GENTAMICIN SO4 80 MG/2 ML VIAL IVPB ONE ×2 (13:08→13:50)
[2021-07-15] MEDS ORDERED: HYDROGEN PEROXIDE 473 ML PO ONE ×2 (13:09→13:56)
[2021-07-15] MEDS ORDERED: BUPIVACAINE LIPOSOME/PF (EXPAREL) 266 MG/20 ML VIAL ONE (13:11)
[2021-07-15] MEDS ORDERED: BUPIVACAINE HCL/PF 0.5% (5MG/ML) 10 ML VIAL IJ ONE ×2 (13:13→14:25)
[2021-07-15] MEDS ORDERED: BUPIVACAINE LIPOSOME/PF (EXPAREL) 266 MG/20 ML VIAL NR ONE ×2 (13:13→14:25)
[2021-07-15] MEDS ORDERED: MIDAZOLAM HCL 2 MG/2 ML SINGLE DOSE VIAL ONE ×2 (13:14→13:32)
[2021-07-15] MEDS ORDERED: PROPOFOL 20 ML ONE (13:14)
[2021-07-15] MEDS ORDERED: VANCOMYCIN 1 GM in D5W (PRE-DOCKED) 1,000 MG/250 ML IVPB ONE (13:20)
[2021-07-15] MEDS ORDERED: POVIDONE-IODINE OINTMENT 10% - 28.4 GM TUBE ONE (13:27)
[2021-07-15] MEDS ORDERED: BACITRACIN 15 GM TUBE TOPICAL OINTMENT ONE (13:29)
[2021-07-15] MEDS ORDERED: ceFAZolin SODIUM 1 GM VIAL ONE (13:29)
[2021-07-15] MEDS ORDERED: ONDANSETRON 4 MG/2 ML VIAL IVPUSH PRN (14:36)
[2021-07-15] MEDS ORDERED: oxyCODONE HCL 5 MG TABLET PO PRN (14:36)
[2021-07-15] MEDS ORDERED: ACETAMINOPHEN 1000 MG/100 ML BAG IVPB ONE ×2 (14:37→15:20)
[2021-07-15] MEDS ORDERED: LACTATED RINGERS SOLUTION 1,000 ML IV SCH (14:45)
[2021-07-15] MEDS ORDERED: ACETAMINOPHEN INJECTION 100 ML IVPB ONE (15:20)
[2021-07-15] MEDS ORDERED: HYDROmorphone *PCA* 10MG/50ML DISP.SYRIN PCA SCH (15:30)
[2021-07-15] MEDS ORDERED: HYDROmorphone *PCA* 10MG/50ML DISP.SYRIN ONE (15:43)
[2021-07-15 17:31] VITALS: BP 125/69; PULSE 75; TEMP 98.1
== END 2021-07-15 17:32 | disposition home or self-care (01) ==
LOC: JASUSAT 05:20
PROVIDERS: ATTEND Neurological Surgery
PROC: 00QT0ZZ Repair Spinal Meninges, Open Approach (ICD-10-PCS; 2021-07-15)
PROC: 00JV0ZZ Inspection of Spinal Cord, Open Approach (ICD-10-PCS; principal; 2021-07-15 13:00)
DX: G97.82 Other postprocedural complications and disorders of nervous system (principal); G96.09 Other spinal cerebrospinal fluid leak; Y83.8 Other surgical procedures as the cause of abnormal reaction of the patient, or of later complication, without mention of misadventure at the time of the procedure; Y75.3 Surgical instruments, materials and neurological devices (including sutures) associated with adverse incidents
CPT/HCPCS: 88304-TC; 94760; J0131

== ENCOUNTER 2021-08-25 04:15 | Inpatient (IN) | payer BC ==
[2021-08-23 14:08] VITALS: BMI 26.8
[2021-08-25] MEDS ORDERED: GENTAMICIN SO4 80 MG/2 ML VIAL ONE (11:02)
[2021-08-25] MEDS ORDERED: BUPIVACAINE LIPOSOME/PF (EXPAREL) 266 MG/20 ML VIAL ONE (11:03)
[2021-08-25] MEDS ORDERED: BUPIVACAINE HCL/PF 0.5% (5MG/ML) 10 ML VIAL ONE ×2 (11:03→11:52)
[2021-08-25] MEDS ORDERED: VANCOMYCIN 1,000 MG VIAL (RESTRICTED TO ID ONLY) ONE ×2 (11:03→11:39)
[2021-08-25] MEDS ORDERED: THROMBIN (BOVINE) 20,000 UNIT VIAL TP ONE (11:03)
[2021-08-25] MEDS ORDERED: LIDOCAINE 1%/EPI 1:100000 (20 ML MULTI DOSE VIAL) ONE (11:03)
[2021-08-25] MEDS ORDERED: SUCCINYLCHOLINE CHLORIDE 200 MG/10 ML SYRINGE ONE (11:49)
[2021-08-25] MEDS ORDERED: MIDAZOLAM HCL 2 MG/2 ML SINGLE DOSE VIAL ONE (11:49)
[2021-08-25] MEDS ORDERED: PROPOFOL 20 ML ONE ×2 (11:49)
[2021-08-25] MEDS ORDERED: VANCOMYCIN 1,000 MG VIAL (RESTRICTED TO ID ONLY) IVPB ONE (11:59)
[2021-08-25] MEDS ORDERED: ROCURONIUM BROMIDE 50 MG/5 ML SYRINGE ONE (12:04)
[2021-08-25] MEDS ORDERED: ceFAZolin SODIUM 1 GM VIAL IVPB ONE (12:06)
[2021-08-25] MEDS ORDERED: KETOROLAC TROMETHAMINE 30 MG/1 ML VIAL ONE (12:12)
[2021-08-25] MEDS ORDERED: DEXAMETHASONE SOD PHOSPHATE 4 MG/1 ML VIAL ONE (12:12)
[2021-08-25] MEDS ORDERED: ONDANSETRON 4 MG/2 ML VIAL ONE (12:12)
[2021-08-25] MEDS ORDERED: LIDOCAINE 1%/EPI 1:100000 (20 ML MULTI DOSE VIAL) INF ONE (12:20)
[2021-08-25] MEDS ORDERED: SUGAMMADEX SODIUM 200 MG/2 ML VIAL ONE (12:35)
[2021-08-25] MEDS ORDERED: BUPIVACAINE HCL/PF 0.5% (5 MG/ML) 30 ML VIAL IJ ONE (12:49)
[2021-08-25] MEDS ORDERED: BUPIVACAINE LIPOSOME/PF (EXPAREL) 266 MG/20 ML VIAL NR ONE (12:49)
[2021-08-25] MEDS ORDERED: oxyCODONE HCL 5 MG TABLET PO PRN ×2 (13:19)
[2021-08-25] MEDS ORDERED: ONDANSETRON 4 MG/2 ML VIAL IVPUSH PRN (13:19)
[2021-08-25 14:57] VITALS: PULSE 70; TEMP 97
[2021-08-25 15:32] VITALS: BP 118/70
== END 2021-08-25 15:25 | disposition home or self-care (01) | DRG 857 ==
LOC: J2C 04:15 → EDSTATUS 11:00
PROVIDERS: ADMIT Neurological Surgery; ATTEND Neurological Surgery
PROC: 0H96XZX Drainage of Back Skin, External Approach, Diagnostic (ICD-10-PCS; 2021-08-25)
PROC: 0HB6XZZ Excision of Back Skin, External Approach (ICD-10-PCS; 2021-08-25)
PROC: 4A11X4G Monitoring of Peripheral Nervous Electrical Activity, Intraoperative, External Approach (ICD-10-PCS; 2021-08-25)
PROC: 00QT0ZZ Repair Spinal Meninges, Open Approach (ICD-10-PCS; principal; 2021-08-25 11:00)
DX: T81.41XA Infection following a procedure, superficial incisional surgical site, initial encounter (principal); T81.31XA Disruption of external operation (surgical) wound, not elsewhere classified, initial encounter; Y83.8 Other surgical procedures as the cause of abnormal reaction of the patient, or of later complication, without mention of misadventure at the time of the procedure; M51.36 Other intervertebral disc degeneration, lumbar region; M48.061 Spinal stenosis, lumbar region without neurogenic claudication; M41.86 Other forms of scoliosis, lumbar region; G47.30 Sleep apnea, unspecified
CPT/HCPCS: 87070; 87075; 87205; 88304-TC; 93005; 93010; 94760

== ENCOUNTER 2022-04-11 08:00 | Inpatient (IN) | payer BC ==
[2022-05-03] MEDS ORDERED: THROMBIN (BOVINE) 5,000 UNIT VIAL TP ONE (07:29)
[2022-05-03] MEDS ORDERED: ceFAZolin SODIUM 1 GM VIAL ONE (07:29)
[2022-05-03] MEDS ORDERED: BUPIVACAINE HCL/PF 0.5% (5MG/ML) 10 ML VIAL ONE (07:30)
[2022-05-03] MEDS ORDERED: ceFAZolin SODIUM 1 GM VIAL IVPB ONE ×2 (08:30→09:54)
[2022-05-03] MEDS ORDERED: ALBUMIN HUMAN 5% 250 ML IV SOLUTION IV ONE ×2 (09:00→15:45)
[2022-05-03] MEDS ORDERED: GENTAMICIN SO4 80 MG/2 ML VIAL ONE (10:01)
[2022-05-03 12:17] LABS: HEMATOCRIT 32.6 % (32.4-45.2); HEMOGLOBIN 10.8 GM/dL (10.7-15.3); MEAN CELL VOLUME 87.7 fl (80-96); MEAN PLT VOLUME 6.9 fl (7.5-11.1); PLATELET COUNT 388 10^3/uL (134-434); RBC 3.72 M/mm3 (3.60-5.2); RDW 14.9 % (11.6-15.6); WHITE BLOOD COUNT 11.2 K/mm3 (4.0-10.0)
[2022-05-03 14:39] LABS: HEMATOCRIT 32.7 % (32.4-45.2); HEMOGLOBIN 10.8 GM/dL (10.7-15.3); MCH 28.9 pg (25.7-33.7); MCHC 33.1 g/dl (32.0-36.0); MEAN CELL VOLUME 87.1 fl (80-96); MEAN PLT VOLUME 6.9 fl (7.5-11.1); PLATELET COUNT 386 10^3/uL (134-434); RBC 3.75 M/mm3 (3.60-5.2); RDW 14.5 % (11.6-15.6)
[2022-05-03] MEDS ORDERED: HYDROmorphone HCl 2 MG/ML VIAL ONE (15:46)
[2022-05-03] MEDS ORDERED: ONDANSETRON 4 MG/2 ML VIAL IVPUSH PRN ×3 (16:03→18:36)
[2022-05-03] MEDS ORDERED: oxyCODONE HCL 5 MG TABLET PO PRN ×2 (16:03)
[2022-05-03] MEDS ORDERED: morphine SULFATE 4 MG/ML VIAL IVPUSH PRN (16:03)
[2022-05-03] MEDS ORDERED: diphenhydrAMINE HCL 25 MG CAPSULE (FP) PO PRN (16:03)
[2022-05-03] MEDS ORDERED: PROMETHAZINE HCL 25 MG/1 ML VIAL IVPB PRN (18:36)
[2022-05-03] MEDS ORDERED: DEXAMETHASONE SOD PHOSPHATE 4 MG/1 ML VIAL IVPUSH PRN (18:36)
[2022-05-03] MEDS ORDERED: HYDROmorphone *PCA* 10MG/50ML DISP.SYRIN ONE (18:48)
[2022-05-03 18:51] LABS: HEMOGLOBIN 11.5 GM/dL (10.7-15.3); MCH 28.7 pg (25.7-33.7); MEAN CELL VOLUME 87.2 fl (80-96); MEAN PLT VOLUME 7.2 fl (7.5-11.1); PLATELET COUNT 348 10^3/uL (134-434); RBC 4.02 M/mm3 (3.60-5.2); RDW 14.8 % (11.6-15.6); WHITE BLOOD COUNT 15.1 K/mm3 (4.0-10.0)
[2022-05-03 18:53] LABS: ALBUMIN 2.8 g/dl (3.4-5.0); BLOOD UREA NITROGEN 9.8 mg/dL (7-18)
[2022-05-03] MEDS: HYDROmorphone *PCA* 10MG/50ML DISP.SYRIN PCA SCH (18:55)
[2022-05-03 18:56] LABS: CREATININE 0.5 mg/dL (0.55-1.3)
[2022-05-03 18:57] LABS: BILIRUBIN,TOTAL 0.4 mg/dL (0.2-1); TOT PROT 5.3 g/dl (6.4-8.2)
[2022-05-03] MEDS ORDERED: ACETAMINOPHEN 1000 MG/100 ML BAG IVPB PRN (21:43)
[2022-05-03] MEDS: DOCUSATE SODIUM 100 MG CAPSULE (FP) PO SCH (21:52)
[2022-05-03] MEDS: CHLORHEXIDINE GLUCONATE 4% CLEANSER FOR DECOLONIZATION TP SCH (21:52)
[2022-05-03] MEDS: LACTATED RINGERS SOLUTION 1,000 ML/1,000 ML INFUS.BAG IV SCH (21:54)
[2022-05-03] MEDS: LACTATED RINGERS SOLUTION 1,000 ML IV SCH (21:54)
[2022-05-03] MEDS: MUPIROCIN 2% TOPICAL OINTMENT FOR DECOLONIZATION NS SCH (22:23)
[2022-05-03] MEDS: CEFAZOLIN SODIUM 2 GM in DEXTROSE 5%-WATER 100 ML IVPB SCH (22:24)
[2022-05-03] MEDS ORDERED: ceFAZolin 2 GRAM PREMIX BAG IVPB SCH (23:00)
[2022-05-03] MEDS: carBAMazepine 200 MG TABLET PO SCH (23:20)
[2022-05-04] MEDS: LACTATED RINGERS SOLUTION 1,000 ML/1,000 ML INFUS.BAG IV SCH (05:00)
[2022-05-04] MEDS: carBAMazepine 200 MG TABLET PO SCH ×3 (06:20→22:13)
[2022-05-04] MEDS: DOCUSATE SODIUM 100 MG CAPSULE (FP) PO SCH ×3 (06:24→22:13)
[2022-05-04] MEDS: CEFAZOLIN SODIUM 2 GM in DEXTROSE 5%-WATER 100 ML IVPB SCH (06:24)
[2022-05-04 06:57] LABS: HEMATOCRIT 29.8 % (32.4-45.2); HEMOGLOBIN 9.7 GM/dL (10.7-15.3); MCHC 32.5 g/dl (32.0-36.0); MEAN CELL VOLUME 86.1 fl (80-96); MEAN PLT VOLUME 7.4 fl (7.5-11.1); PLATELET COUNT 300 10^3/uL (134-434); RBC 3.46 M/mm3 (3.60-5.2); RDW 14.7 % (11.6-15.6); WHITE BLOOD COUNT 11.3 K/mm3 (4.0-10.0)
[2022-05-04 07:20] LABS: BLOOD UREA NITROGEN 7.9 mg/dL (7-18); CALCIUM 7.5 mg/dL (8.5-10.1); MAGNESIUM 1.7 mg/dL (1.8-2.4)
[2022-05-04 07:24] LABS: CREATININE 0.4 mg/dL (0.55-1.3); PHOSPHOROUS 3.7 mg/dL (2.5-4.9)
[2022-05-04] MEDS ORDERED: LACTATED RINGERS SOLUTION 1,000 ML/1,000 ML INFUS.BAG IV SCH (07:45)
[2022-05-04] MEDS ORDERED: MAGNESIUM 1GM/D5W 100ML - 100 ML IVPB IVPB ONE (08:30)
[2022-05-04] MEDS: MUPIROCIN 2% TOPICAL OINTMENT FOR DECOLONIZATION NS SCH ×2 (10:23→22:14)
[2022-05-04] MEDS: HYDROmorphone *PCA* 10MG/50ML DISP.SYRIN PCA SCH (17:52)
[2022-05-04] MEDS: LACTATED RINGERS SOLUTION 1,000 ML IV SCH (18:25)
[2022-05-04 19:33] LABS: HEMOGLOBIN 9.3 GM/dL (10.7-15.3); MCH 28.4 pg (25.7-33.7); MCHC 33.2 g/dl (32.0-36.0); MEAN CELL VOLUME 85.7 fl (80-96); MEAN PLT VOLUME 7.2 fl (7.5-11.1); PLATELET COUNT 322 10^3/uL (134-434); RBC 3.27 M/mm3 (3.60-5.2); RDW 14.6 % (11.6-15.6); WHITE BLOOD COUNT 12.4 K/mm3 (4.0-10.0)
[2022-05-04 19:52] LABS: ALBUMIN 2.3 g/dl (3.4-5.0); BLOOD UREA NITROGEN 5.1 mg/dL (7-18)
[2022-05-04 19:55] LABS: CREATININE 0.5 mg/dL (0.55-1.3)
[2022-05-04 19:57] LABS: BILIRUBIN,TOTAL 0.3 mg/dL (0.2-1); TOT PROT 4.8 g/dl (6.4-8.2)
[2022-05-04] MEDS: [UNRECOGNIZED DRUG - OTHER] TD SCH (20:53)
[2022-05-04] MEDS: NORETHINDRONE ACET TD SCH (20:53)
[2022-05-04] MEDS: ESTRADIOL TD SCH (20:53)
[2022-05-04 21:31] LABS: CALCIUM 7.8 mg/dL (8.5-10.1)
[2022-05-04] MEDS: CHLORHEXIDINE GLUCONATE 4% CLEANSER FOR DECOLONIZATION TP SCH (22:14)
[2022-05-05] MEDS: DOCUSATE SODIUM 100 MG CAPSULE (FP) PO SCH ×3 (06:43→22:30)
[2022-05-05] MEDS: carBAMazepine 200 MG TABLET PO SCH ×3 (06:43→22:30)
[2022-05-05 08:59] LABS: HEMATOCRIT 25.9 % (32.4-45.2); HEMOGLOBIN 8.6 GM/dL (10.7-15.3); MCH 28.6 pg (25.7-33.7); MCHC 33.4 g/dl (32.0-36.0); MEAN CELL VOLUME 85.5 fl (80-96); MEAN PLT VOLUME 7.2 fl (7.5-11.1); PLATELET COUNT 296 10^3/uL (134-434); RBC 3.02 M/mm3 (3.60-5.2); RDW 14.5 % (11.6-15.6); WHITE BLOOD COUNT 13.2 K/mm3 (4.0-10.0)
[2022-05-05 09:02] LABS: CHLORIDE 98 mmol/L (98-107); SODIUM 136 mmol/L (136-145)
[2022-05-05 09:04] LABS: CALCIUM 7.7 mg/dL (8.5-10.1)
[2022-05-05 09:05] LABS: ALBUMIN 2.1 g/dl (3.4-5.0); ANION GAP 7 MMOL/L (8-16); CO2 32 mmol/L (21-32); GLUCOSE,RANDOM 107 mg/dL (74-106)
[2022-05-05 09:07] LABS: CREATININE 0.3 mg/dL (0.55-1.3)
[2022-05-05 09:08] LABS: SGOT/AST 137 U/L (15-37); SGPT/ALT 19 U/L (13-61)
[2022-05-05 09:09] LABS: BILIRUBIN,TOTAL 0.4 mg/dL (0.2-1); TOT PROT 4.5 g/dl (6.4-8.2)
[2022-05-05 09:10] LABS: ALK PHOS 60 U/L (45-117)
[2022-05-05 09:23] LABS: BLOOD UREA NITROGEN 2.6 mg/dL (7-18)
[2022-05-05] MEDS ORDERED: oxyCODONE HCL 5 MG TABLET PO PRN ×2 (10:15→17:09)
[2022-05-05] MEDS ORDERED: ACETAMINOPHEN 325 MG TABLET (FP) PO PRN ×3 (10:15→17:09)
[2022-05-05] MEDS: oxyCODONE HCL 5 MG TABLET PO PRN ×3 (10:41→20:08)
[2022-05-05] MEDS: MUPIROCIN 2% TOPICAL OINTMENT FOR DECOLONIZATION NS SCH (10:42)
[2022-05-05 11:17] LABS: ERYTHROCYTE SEDIMENTATION RATE 46 mm/hr (0-30)
[2022-05-05] MEDS ORDERED: PIPERACILLIN/TAZOB 4.5 GM 4.5 GM in DEXTROSE 5%-WATER 100 ML IVPB SCH (11:30)
[2022-05-05] MEDS ORDERED: CEFAZOLIN SODIUM 2 GM in DEXTROSE 5%-WATER 100 ML IVPB SCH (12:15)
[2022-05-05] MEDS ORDERED: CEFTRIAXONE 2 GM in DEXTROSE 5%-WATER 100 ML IVPB SCH (12:19)
[2022-05-05] MEDS: CEFTRIAXONE 2 GM in DEXTROSE 5%-WATER 100 ML IVPB SCH (14:29)
[2022-05-05 15:04] LABS: EPI CELLS 24 /uL (0-25.1); HYALINE CASTS 1 /uL (0-3.1); PH,URINE 5.5 (5.0-8.0); URINE APPEARANCE CLEAR; URINE BACTERIA 101 /uL (0-1359); URINE BILIRUBIN NEGATIVE (NEGATIVE); URINE COLOR YELLOW; URINE GLUCOSE (UA) NEGATIVE (NEGATIVE); URINE KETONE NEGATIVE (NEGATIVE); URINE LEUK ESTERASE TRACE (NEGATIVE); URINE NITRITE NEGATIVE (NEGATIVE); URINE PROTEIN NEGATIVE (NEGATIVE); URINE RBC 54 /uL (0-23.9); URINE UROBILINOGEN 0.2 mg/dL (0.2-1.0); URINE WBC 45 /uL (0-25.8)
[2022-05-05] MEDS ORDERED: PROMETHAZINE HCL 25 MG/1 ML VIAL IVPB PRN (17:09)
[2022-05-05] MEDS ORDERED: MUPIROCIN 2% TOPICAL OINTMENT FOR DECOLONIZATION NS SCH (22:00)
[2022-05-05] MEDS ORDERED: CHLORHEXIDINE GLUCONATE 4% CLEANSER FOR DECOLONIZATION TP SCH (22:00)
[2022-05-06] MEDS: oxyCODONE HCL 5 MG TABLET PO PRN ×6 (00:04→21:43)
[2022-05-06] MEDS: ACETAMINOPHEN 325 MG TABLET (FP) PO PRN ×5 (04:39→21:45)
[2022-05-06] MEDS: DOCUSATE SODIUM 100 MG CAPSULE (FP) PO SCH ×3 (05:56→21:42)
[2022-05-06] MEDS: carBAMazepine 200 MG TABLET PO SCH ×3 (05:57→21:42)
[2022-05-06 08:20] LABS: HEMATOCRIT 24.1 % (32.4-45.2); HEMOGLOBIN 8.2 GM/dL (10.7-15.3); MCH 28.9 pg (25.7-33.7); MCHC 33.9 g/dl (32.0-36.0); MEAN CELL VOLUME 85.3 fl (80-96); MEAN PLT VOLUME 7.3 fl (7.5-11.1); PLATELET COUNT 307 10^3/uL (134-434); RBC 2.83 M/mm3 (3.60-5.2); RDW 14.4 % (11.6-15.6); WHITE BLOOD COUNT 10.9 K/mm3 (4.0-10.0)
[2022-05-06 08:37] LABS: BLOOD UREA NITROGEN 3.5 mg/dL (7-18); CALCIUM 7.9 mg/dL (8.5-10.1)
[2022-05-06 08:39] LABS: ALBUMIN 1.9 g/dl (3.4-5.0); CREATININE 0.3 mg/dL (0.55-1.3)
[2022-05-06 08:42] LABS: BILIRUBIN,TOTAL 0.3 mg/dL (0.2-1); TOT PROT 4.3 g/dl (6.4-8.2)
[2022-05-06] MEDS: CEFTRIAXONE 2 GM in DEXTROSE 5%-WATER 100 ML IVPB SCH (09:20)
[2022-05-06] MEDS ORDERED: SENNOSIDES 8.6MG TABLET (FP) PO PRN (11:58)
[2022-05-06] MEDS ORDERED: POTASSIUM CHLORIDE TABS 20 MEQ TABLET.ER (FP) PO ONE (15:35)
[2022-05-07] MEDS: oxyCODONE HCL 5 MG TABLET PO PRN ×6 (01:32→21:21)
[2022-05-07] MEDS: ACETAMINOPHEN 325 MG TABLET (FP) PO PRN ×6 (01:32→21:22)
[2022-05-07] MEDS: DOCUSATE SODIUM 100 MG CAPSULE (FP) PO SCH ×3 (05:23→21:21)
[2022-05-07] MEDS: carBAMazepine 200 MG TABLET PO SCH ×3 (05:23→21:21)
[2022-05-07 09:18] LABS: HEMATOCRIT 26.9 % (32.4-45.2); HEMOGLOBIN 8.9 GM/dL (10.7-15.3); MCH 28.8 pg (25.7-33.7); MCHC 33.1 g/dl (32.0-36.0); MEAN PLT VOLUME 7.3 fl (7.5-11.1); PLATELET COUNT 417 10^3/uL (134-434); RBC 3.09 M/mm3 (3.60-5.2); RDW 14.2 % (11.6-15.6); WHITE BLOOD COUNT 9.5 K/mm3 (4.0-10.0)
[2022-05-07] MEDS: CEFTRIAXONE 2 GM in DEXTROSE 5%-WATER 100 ML IVPB SCH (09:39)
[2022-05-07 09:46] LABS: CALCIUM 7.9 mg/dL (8.5-10.1)
[2022-05-07 09:47] LABS: ALBUMIN 2.2 g/dl (3.4-5.0); BLOOD UREA NITROGEN 4.3 mg/dL (7-18)
[2022-05-07 09:51] LABS: CREATININE 0.3 mg/dL (0.55-1.3)
[2022-05-07 09:52] LABS: TOT PROT 5.2 g/dl (6.4-8.2)
[2022-05-07 09:55] LABS: BILIRUBIN,TOTAL 0.3 mg/dL (0.2-1)
[2022-05-08] MEDS: ACETAMINOPHEN 325 MG TABLET (FP) PO PRN ×2 (01:07→05:04)
[2022-05-08] MEDS: oxyCODONE HCL 5 MG TABLET PO PRN ×4 (01:09→21:20)
[2022-05-08] MEDS: DOCUSATE SODIUM 100 MG CAPSULE (FP) PO SCH ×3 (05:05→21:19)
[2022-05-08] MEDS: carBAMazepine 200 MG TABLET PO SCH ×3 (05:05→21:20)
[2022-05-08] MEDS: CEFTRIAXONE 2 GM in DEXTROSE 5%-WATER 100 ML IVPB SCH (09:40)
[2022-05-08 11:28] LABS: HEMATOCRIT 26.1 % (32.4-45.2); HEMOGLOBIN 8.8 GM/dL (10.7-15.3); MCH 29.4 pg (25.7-33.7); MCHC 33.5 g/dl (32.0-36.0); MEAN CELL VOLUME 87.8 fl (80-96); MEAN PLT VOLUME 6.9 fl (7.5-11.1); PLATELET COUNT 389 10^3/uL (134-434); RBC 2.97 M/mm3 (3.60-5.2); RDW 14.7 % (11.6-15.6); WHITE BLOOD COUNT 7.2 K/mm3 (4.0-10.0)
[2022-05-08 11:44] LABS: CALCIUM 7.9 mg/dL (8.5-10.1)
[2022-05-08 11:45] LABS: BLOOD UREA NITROGEN 6.6 mg/dL (7-18)
[2022-05-08 11:48] LABS: CREATININE 0.5 mg/dL (0.55-1.3)
[2022-05-08 11:49] LABS: BILIRUBIN,TOTAL 0.2 mg/dL (0.2-1)
[2022-05-08] MEDS: ENOXAPARIN NA (PORCINE) 40 MG/0.4 ML DISP.SYRIN SQ SCH (14:47)
[2022-05-08] MEDS: ACETAMINOPHEN 1000 MG/100 ML BAG IVPB PRN (21:21)
[2022-05-09] MEDS: oxyCODONE HCL 5 MG TABLET PO PRN ×5 (01:14→19:53)
[2022-05-09] MEDS: ACETAMINOPHEN 1000 MG/100 ML BAG IVPB PRN ×2 (03:10→11:25)
[2022-05-09] MEDS: carBAMazepine 200 MG TABLET PO SCH ×3 (05:47→22:31)
[2022-05-09] MEDS: DOCUSATE SODIUM 100 MG CAPSULE (FP) PO SCH ×3 (05:47→22:31)
[2022-05-09 10:51] LABS: HEMATOCRIT 26.6 % (32.4-45.2); HEMOGLOBIN 9.1 GM/dL (10.7-15.3); MCH 29.8 pg (25.7-33.7); MCHC 34.4 g/dl (32.0-36.0); MEAN CELL VOLUME 86.6 fl (80-96); PLATELET COUNT 456 10^3/uL (134-434); RBC 3.07 M/mm3 (3.60-5.2); RDW 14.7 % (11.6-15.6); WHITE BLOOD COUNT 8.3 K/mm3 (4.0-10.0)
[2022-05-09 11:12] LABS: CALCIUM 8.1 mg/dL (8.5-10.1)
[2022-05-09 11:13] LABS: ALBUMIN 2.2 g/dl (3.4-5.0); BLOOD UREA NITROGEN 6.2 mg/dL (7-18)
[2022-05-09 11:16] LABS: BILIRUBIN,TOTAL 0.2 mg/dL (0.2-1); CREATININE 0.4 mg/dL (0.55-1.3)
[2022-05-09] MEDS: METHOCARBAMOL 500 MG TABLET PO PRN (11:24)
[2022-05-09] MEDS: CEFTRIAXONE 2 GM in DEXTROSE 5%-WATER 100 ML IVPB SCH (11:25)
[2022-05-09] MEDS: ENOXAPARIN NA (PORCINE) 40 MG/0.4 ML DISP.SYRIN SQ SCH (11:25)
[2022-05-09] MEDS ORDERED: oxyCODONE HCL 5 MG TABLET PO PRN (12:06)
[2022-05-09 15:01] VITALS: BMI 27.9
[2022-05-09] MEDS: ACETAMINOPHEN 325 MG TABLET (FP) PO PRN ×2 (15:14→19:52)
[2022-05-10] MEDS: ACETAMINOPHEN 325 MG TABLET (FP) PO PRN ×5 (00:37→21:01)
[2022-05-10] MEDS: oxyCODONE HCL 5 MG TABLET PO PRN ×5 (00:38→21:00)
[2022-05-10] MEDS: carBAMazepine 200 MG TABLET PO SCH ×3 (05:08→21:38)
[2022-05-10] MEDS: DOCUSATE SODIUM 100 MG CAPSULE (FP) PO SCH ×2 (05:09→13:25)
[2022-05-10] MEDS: AMINO ACIDS/PROTEIN HYDROLYS 30 ML LIQUID.PKT PO SCH (09:06)
[2022-05-10] MEDS: ENOXAPARIN NA (PORCINE) 40 MG/0.4 ML DISP.SYRIN SQ SCH (10:52)
[2022-05-10] MEDS: CEFTRIAXONE 2 GM in DEXTROSE 5%-WATER 100 ML IVPB SCH (10:52)
[2022-05-10 11:35] LABS: HEMATOCRIT 27.7 % (32.4-45.2); HEMOGLOBIN 9.1 GM/dL (10.7-15.3); MCHC 32.8 g/dl (32.0-36.0); MEAN CELL VOLUME 88.4 fl (80-96); PLATELET COUNT 533 10^3/uL (134-434); RBC 3.13 M/mm3 (3.60-5.2); RDW 15.1 % (11.6-15.6)
[2022-05-10 12:17] LABS: ALBUMIN 2.2 g/dl (3.4-5.0); BILIRUBIN,TOTAL 0.2 mg/dL (0.2-1); BLOOD UREA NITROGEN 5.9 mg/dL (7-18); CALCIUM 8.2 mg/dL (8.5-10.1); CREATININE 0.4 mg/dL (0.55-1.3); TOT PROT 5.2 g/dl (6.4-8.2)
[2022-05-10] MEDS: METHOCARBAMOL 500 MG TABLET PO PRN (17:34)
[2022-05-11] MEDS: DOCUSATE SODIUM 100 MG CAPSULE (FP) PO SCH ×4 (00:18→22:14)
[2022-05-11] MEDS: METHOCARBAMOL 500 MG TABLET PO PRN ×2 (00:22→13:00)
[2022-05-11] MEDS: oxyCODONE HCL 5 MG TABLET PO PRN ×6 (01:38→23:28)
[2022-05-11] MEDS: ACETAMINOPHEN 325 MG TABLET (FP) PO PRN ×2 (01:43→05:44)
[2022-05-11] MEDS: carBAMazepine 200 MG TABLET PO SCH ×3 (05:47→22:14)
[2022-05-11] MEDS: AMINO ACIDS/PROTEIN HYDROLYS 30 ML LIQUID.PKT PO SCH (09:47)
[2022-05-11] MEDS: ENOXAPARIN NA (PORCINE) 40 MG/0.4 ML DISP.SYRIN SQ SCH (09:59)
[2022-05-11] MEDS: CEFTRIAXONE 2 GM in DEXTROSE 5%-WATER 100 ML IVPB SCH (09:59)
[2022-05-11 10:18] LABS: HEMATOCRIT 28.9 % (32.4-45.2); HEMOGLOBIN 9.7 GM/dL (10.7-15.3); MCH 29.4 pg (25.7-33.7); MCHC 33.5 g/dl (32.0-36.0); MEAN CELL VOLUME 87.9 fl (80-96); MEAN PLT VOLUME 6.9 fl (7.5-11.1); PLATELET COUNT 651 10^3/uL (134-434); RBC 3.29 M/mm3 (3.60-5.2); RDW 15.1 % (11.6-15.6); WHITE BLOOD COUNT 9.2 K/mm3 (4.0-10.0)
[2022-05-11 10:44] LABS: BLOOD UREA NITROGEN 7.6 mg/dL (7-18); CALCIUM 8.3 mg/dL (8.5-10.1)
[2022-05-11 10:45] LABS: ALBUMIN 2.5 g/dl (3.4-5.0)
[2022-05-11 10:48] LABS: CREATININE 0.5 mg/dL (0.55-1.3)
[2022-05-11 10:49] LABS: BILIRUBIN,TOTAL 0.2 mg/dL (0.2-1); TOT PROT 5.6 g/dl (6.4-8.2)
[2022-05-11 12:15] VITALS: RESP 18
[2022-05-12] MEDS: oxyCODONE HCL 5 MG TABLET PO PRN ×2 (05:15→09:07)
[2022-05-12] MEDS: ACETAMINOPHEN 325 MG TABLET (FP) PO PRN (05:16)
[2022-05-12] MEDS: carBAMazepine 200 MG TABLET PO SCH ×2 (06:03→15:16)
[2022-05-12] MEDS: DOCUSATE SODIUM 100 MG CAPSULE (FP) PO SCH ×2 (06:03→15:16)
[2022-05-12 07:06] VITALS: BP 109/64; PULSE 74; TEMP 98.2
[2022-05-12] MEDS: AMINO ACIDS/PROTEIN HYDROLYS 30 ML LIQUID.PKT PO SCH (09:09)
[2022-05-12] MEDS: CEFTRIAXONE 2 GM in DEXTROSE 5%-WATER 100 ML IVPB SCH (12:08)
[2022-05-12] MEDS: ENOXAPARIN NA (PORCINE) 40 MG/0.4 ML DISP.SYRIN SQ SCH (12:09)
[2022-05-12] MEDS: METHOCARBAMOL 500 MG TABLET PO PRN (12:14)
[2022-05-12] MEDS ORDERED: oxyCODONE HCL 5 MG TABLET PO PRN (15:18)
== END 2022-05-12 15:30 | DRG 454 ==
LOC: J2C 05-03 04:07 → JICU 05-03 20:45 → J5S 05-05 16:47
PROVIDERS: ADMIT Neurological Surgery; ATTEND Internal Medicine
PROC: 30233N1 Transfusion of Nonautologous Red Blood Cells into Peripheral Vein, Percutaneous Approach (ICD-10-PCS; 2022-05-03)
PROC: 0SG10AJ Fusion of 2 or more Lumbar Vertebral Joints with Interbody Fusion Device, Posterior Approach, Anterior Column, Open Approach (ICD-10-PCS; principal; 2022-05-08)
PROC: 0SG1071 Fusion of 2 or more Lumbar Vertebral Joints with Autologous Tissue Substitute, Posterior Approach, Posterior Column, Open Approach (ICD-10-PCS; 2022-05-08)
PROC: 0SG30AJ Fusion of Lumbosacral Joint with Interbody Fusion Device, Posterior Approach, Anterior Column, Open Approach (ICD-10-PCS; 2022-05-08)
PROC: 0SG30K1 Fusion of Lumbosacral Joint with Nonautologous Tissue Substitute, Posterior Approach, Posterior Column, Open Approach (ICD-10-PCS; 2022-05-08)
PROC: 01NB0ZZ Release Lumbar Nerve, Open Approach (ICD-10-PCS; 2022-05-08)
PROC: 0QB00ZZ Excision of Lumbar Vertebra, Open Approach (ICD-10-PCS; 2022-05-08)
PROC: 00U20KZ Supplement Dura Mater with Nonautologous Tissue Substitute, Open Approach (ICD-10-PCS; 2022-05-08)
PROC: 4A1004G Monitoring of Central Nervous Electrical Activity, Intraoperative, Open Approach (ICD-10-PCS; 2022-05-08)
PROC: 02HV33Z Insertion of Infusion Device into Superior Vena Cava, Percutaneous Approach (ICD-10-PCS; 2022-05-12)
DX: M96.0 Pseudarthrosis after fusion or arthrodesis (principal); T84.89XA Other specified complication of internal orthopedic prosthetic devices, implants and grafts, initial encounter; M48.061 Spinal stenosis, lumbar region without neurogenic claudication; Y83.9 Surgical procedure, unspecified as the cause of abnormal reaction of the patient, or of later complication, without mention of misadventure at the time of the procedure; Y92.89 Other specified places as the place of occurrence of the external cause; G60.0 Hereditary motor and sensory neuropathy; K59.00 Constipation, unspecified; G62.9 Polyneuropathy, unspecified
CPT/HCPCS: 36415; 36569; 72100-TC-FY; 76000-TC-FY; 77001-TC-FY; 80048; 80053; 81003; 83605; 83735; 84100; 85027; 85651; 86140; 86850; 86900; 86901; 86922; 87040; 87070; 87075; 87086; 87186; 87205; 94010; 94760; 97116-GP; 97162-GP; C1713; C1751; C1889; C9803-CS; P9058; U0003; U0005

== ENCOUNTER 2023-04-02 04:15 | Day surgery (SDC) | payer BC ==
[2023-03-29 14:04] VITALS: BMI 28.4
[2023-04-02 09:35] LABS: PROTHROMBIN TIME (PATIENT) 11.6 SEC (9.7-13.0)
[2023-04-02 09:37] LABS: BASO % 0.6 % (0-2.0); HEMATOCRIT 40.1 % (32.4-45.2); HEMOGLOBIN 13.5 GM/dL (10.7-15.3); MCHC 33.8 g/dl (32.0-36.0); MEAN CELL VOLUME 88.7 fl (80-96); MEAN PLT VOLUME 7.9 fl (7.5-11.1); MONO % 5.6 % (3.8-10.2); NEUT % 58.8 % (42.8-82.8); PLATELET COUNT 345 10^3/uL (134-434); RBC 4.52 M/mm3 (3.60-5.2); RDW 15.8 % (11.6-15.6); WHITE BLOOD COUNT 8.9 K/mm3 (4.0-10.0)
[2023-04-02 09:38] VITALS: RESP 20
[2023-04-02 13:07] VITALS: BP 146/71; PULSE 66; TEMP 97.2
== END 2023-04-02 13:30 | disposition home or self-care (01) ==
LOC: JRADIR 04:15
PROVIDERS: ATTEND Neurological Surgery
PROC: B02BYZZ Computerized Tomography (CT Scan) of Spinal Cord using Other Contrast (ICD-10-PCS; principal; 2023-04-02)
DX: M54.59 Other low back pain (principal)
CPT/HCPCS: 36415; 62304; 72131-TC; 72265-TC-FY; 84703; 85025; 85610